=== PATIENT | female | born 1960 | race Caucasian/White ===

== ENCOUNTER 2016-07-16 15:45 | Emergency (ER) | payer MEDICAID ==
[~2016-07-16] VITALS: Ht 165.1 cm; Wt 69.4 kg
[~2016-07-16 15:45] MED LIST: ACCOLATE20 MG PO; ADOXA100 MG PO; ADVAIR DISKUS 21 DSK IH; ALBUTEROL; ALBUTEROL2.5 MG/NEB IN; ASPIRIN EC81 MG PO; AUGMENTIN1 TA2 PO; AZITHROMYCIN250 M1 PO; BACTROBAN2% TP; BENADRYL 50MG C50 MG PO; BENADRYL G12.5 MG/5 PO; BENTYL GENERIC10 MG OR; BIAXIN 500MG T500 MG PO; BIAXIN500 MG PO; CEFDINIR 300MG300 MG PO; COMBIVENT INH14.7 GM IN; COMBIVENT RESPI1 SPR IN; DARVOCET-N 1001 EACH PO; DELTASONE5 MG PO; FLEXERIL10 MG PO; FUROSEMIDE80 M1 PO; FUROSEMIDE80 MG PO; GABAPENTIN300 M1 PO; HUMALOG PEN100 U/ML SC; HUMULIN 70100 UNITS/ SC; HUMULIN N100 UNITS/ SC; HUMULIN R100 UNITS/ SC; HUMULIN10 ML SC; HYDROCODONE BIT PO; HYDROCODONE1 TABLET PO; HYDROCORTI30 GM/TUB1 TP; IBU-8800 MG PO; IBU800 M1 PO; IPRATROPIUM; KEFLEX 500MG.500 MG PO; LANOXIN 0.25M0.25 MG PO; LANTUS INS100 UNITS/ SC; LORTAB 5/3251 TAB PO; LORTAB 5/500 501 TAB PO; MACROBID 100MG100 M1 PO; MEDROL 4MG. DOSE4 MG PO; METFORMIN HCL850 M1 PO; METFORMIN1000 MG PO; MONTELUKAST SOD10 MG PO; MUCINEX DM 30 M1 TE1 PO; NAPROSYN 500MG500 MG PO; NAPROSYN500 M1 PO; NEXIUM40 MG PO; NITROGLYCERIN0.4 MG SL; NORTRIPTYLINE H25 M1 PO; NOVOLIN 70/30 710 ML SC; OMNICEF 300 MG300 MG PO; PAXIL20 MG PO; PEPCID 20MG TAB20 MG PO; PERCOCET 5/3251 EACH PO; PHENERGAN 25MG.25 M1 PO; PREDNISOLO15 MG/5 M1 PO; PREDNISONE 10MG10 MG PO; PREDNISONE 20MG20 MG PO; PREDNISONE 5MG.5 MG PO; PREDNISONE5 MG PO; PREDNISONE50 MG PO; PROMETHAZINE HC25 M1 PO; PROTONIX40 MG PO; PROVENTIL0.09 MG/AC IH; ROBAXIN-750750 MG PO; SKELAXIN 800MG800 MG PO; STERAPRED DS10 MG PO; TESSALON PERLE100 MG PO; TESSALON PERLE200 MG PO; TOUJEO300 U/ML SC; TRAMADOL 50MG T1 PAK PO; TRAMADOL HYDROC50 M1 PO; TRAMADOL50 M1 PO; VALIUM10 MG PO; VIBRAMYCIN 100100 MG PO; VIBRAMYCIN HYC100 MG PO; VICODIN 5/500 T1 TAB PO; ZAFIRLUKAST20 M1 PO; ZANTAC 300300 MG PO; ZITHROMAX Z PA250 MG PO; Zithromax500 MG PO
--- NOTE | 2016-07-16 16:13 | Emergency Room Report ---
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 N Clinical Suspician of Infection? N Mental Status: 1 - Regular (Normal Baseline) Sepsis Risk:Low Sepsis Risk Have you (or family members/close friends) recently traveled outside the [place]? N If Yes, where/when: Have you had exposure to infectious disease within the past month? N TB? Other? 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 Declines pain medications as "I drank beers today". ALLERGIES Coded Allergies: Penicillins (Intermediate, I-RASH 05/23/16) Sulfa (Sulfonamide Antibiotics) (Intermediate, NA-NAUSEA/VOMITING 05/23/16) amoxicillin (Intermediate, I-RASH 05/23/16) azithromycin (Intermediate, I-RASH 05/23/16) doxycycline (Intermediate, I-RASH 05/23/16) levofloxacin (Intermediate, NA-NAUSEA/VOMITING 05/23/16) montelukast (Intermediate, I-RASH 05/23/16) propoxyphene (Intermediate, NA-NAUSEA/VOMITING 05/23/16) trimethoprim (Intermediate, NA-NAUSEA/VOMITING 05/23/16) ibuprofen (Mild, NA-NAUSEA/VOMITING 05/23/16) Quinolones (05/23/16) sulfamethoxazole (05/23/16) Home Medications Active Scripts Diazepam (Valium) 10 MG PO TIDP #90 Ref 2 Prov: 02/03/14 TRAMADOL HCL (Tramadol) 50 MG PO TID #90 TAB Prov: 06/22/15 Reported Medications ALBUTEROL/IPRATROPIUM (Combivent Respimat Inhal [place]) 1 PUFFS IN Q4HP Furosemide 80 MG PO DAILYP PRN NEEDED DIURETIC Digoxin (Lanoxin 0.25MG) 0.25 MG PO DAILY Montelukast Sodium 10 MG PO QHS PAROXETINE (Paroxetine HCl) 30 MG PO DAILY Pantoprazole Sodium (Protonix) 40 MG PO DAILY Insulin Lispro (Humalog INSULIN Pen) 25 UNITS SC AC Prednisone (Prednisone 5MG) 5 MG PO DAILY INSULIN GLARGINE,HUM.REC.ANLOG (Kit Lee) 70 U SC QHS History Medical History General CAD? Yes Angina: No [place]: No Hypertension? No Hyperlipidemia? Yes CHF? No DVT? No PE? No COPD? Yes Asthma? Yes Anemia? No GERD? Yes Gastric ulcers? No GI Bleed? No Hernia? Yes Thyroid Problems? No Hypothyroidism? No CVA? No Seizures? No Diabetes? Yes Insulin Dependent: Yes Insulin Pump: No Home FSBS? Yes Renal Insuffiency? No End Stage Renal Disease? No UTI? Yes Stones? No BPH? No GB Disease: Yes Nephritic Syndrome? No Asplenia? No Hepatitis? No Sickle Cell Disease? No Arthritis? Yes Migraines? No Cataracts? No Glaucoma? No MRSA? No HIV? No TB? No Anxiety? Yes Depression? Yes Cancer? No Additional hx: Chronic Hyponatremia(uncontrolled DM and alcoholism), Alcoholism Immunization Hx DT/Tetanus N Flu Refused Pneumonia Refuses Surgical Hx Previous Surgery?Y TUBAL REMOVAL OF LUNG ABCESS RT.FALLOPIAN TUBE REM. 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 LMP N/A Family History Family Hx Diabetes Yes CAD No Hypertension Yes Hyperlipidemia Yes Cancer Yes TB No Social History Smoking Hx Smoker: Current Every Day Smoker Tobacco: Yes Type Cigarettes Packs/day < 1 Pack Alcohol Alcohol: Yes Review of Systems All Other Systems Reviewed and Negative Musculoskeletal see HPI Physical Exam Vital Signs Vital Signs Date Time Temp Pulse Resp B/P Pulse O2 O2 Flow FiO2 Ox Delivery Rate 07/16 1706 74 16 123/75 97 07/16 1629 76 16 135/74 95 07/16 1546 98.2 79 16 122/63 95 General Appearance normal appearance, WD/WN, no apparent distress Respiratory Status Yes: trachea midline. No: respiratory distress. Cardiovascular no peripheral edema Extremities Ecchymosis just distal to left patella, extending to proximal tibia region, some swelling; no asymmetry, crepitus, deformities, or stepoff. No laxity. Distally, no edema or asymmetry, moves other joints well. Neurologic alert, normal exam, no motor/sensory deficits, oriented x 3 Skin intact, bruising Medical Decision Making LABS/Meds/Orders Pt receiving controlled substance in ED? Yes Barrie was queried for this patient? Yes Reference #: [id number] Risks/benefits of using a controlled substance for treatment were discussed w/pt by me Results/Orders Orders Procedure Date/time Status LOWER LEG-LT 07/16 1551 Active KNEE-3 VIEWS-LT 07/16 1551 Active XRAY/CT/US XRAY/CT/US XRAY knee XR interpretation by reviewed by me Xray Results normal/NAD (L tibial tubercle fx), abnormal Consult MD Physician Consult Consult/PCP d/w Dr. Sandra posterior splint and walker, october f/u this week for recheck. Time Called 1622 Reason Pt. Condition, Orthopedic eval/care Comments Dr. Sandra Departure Departure Time of Disposition 171 Disposition DC Home or Self Care(routine) Clinical Impression Primary Impression: Fracture of tibial shaft, left, closed Qualifiers: Encounter type: initial encounter Fracture morphology: oblique Fracture alignment: displaced Qualified Code: S82.232A - Displaced oblique fracture of shaft of left tibia, initial encounter for closed fracture Condition STABLE Referrals Luis Alberto Fan MD (Family) Patient Instructions DI for Shinbone Fracture Additional Instructions You may follow up with Dr. Fan this week for recheck and for orthopedic referral as you will need a cast per my discussion with our web content specialist orthopedic surgeon, Dr. Sandra, who reviewed the xrays today and made recommendations. Discharge Counseling Counseled pt/family regarding diagnosis, test results, medications/RX, home care, follow up needs Prescriptions Current Visit Scripts HYDROCODONE/ACETAMINOPHEN (Lortab 5-325 MG Tablet) 1 TAB PO Q6HP PRN fracture pain #20 TAB ED Critical Care Critical Care No at 1728
--- NOTE | 2016-07-16 16:13 | Emergency Room Report ---
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 N Clinical Suspician of Infection? N Mental Status: 1 - Regular (Normal Baseline) Sepsis Risk:Low Sepsis Risk Have you (or family members/close friends) recently traveled outside the [place]? N If Yes, where/when: Have you had exposure to infectious disease within the past month? N TB? Other? 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 Declines pain medications as "I drank beers today". ALLERGIES Coded Allergies: Penicillins (Intermediate, I-RASH 05/23/16) Sulfa (Sulfonamide Antibiotics) (Intermediate, NA-NAUSEA/VOMITING 05/23/16) amoxicillin (Intermediate, I-RASH 05/23/16) azithromycin (Intermediate, I-RASH 05/23/16) doxycycline (Intermediate, I-RASH 05/23/16) levofloxacin (Intermediate, NA-NAUSEA/VOMITING 05/23/16) montelukast (Intermediate, I-RASH 05/23/16) propoxyphene (Intermediate, NA-NAUSEA/VOMITING 05/23/16) trimethoprim (Intermediate, NA-NAUSEA/VOMITING 05/23/16) ibuprofen (Mild, NA-NAUSEA/VOMITING 05/23/16) Quinolones (05/23/16) sulfamethoxazole (05/23/16) Home Medications Active Scripts Diazepam (Valium) 10 MG PO TIDP #90 Ref 2 Prov: 02/03/14 TRAMADOL HCL (Tramadol) 50 MG PO TID #90 TAB Prov: 06/22/15 Reported Medications ALBUTEROL/IPRATROPIUM (Combivent Respimat Inhal [place]) 1 PUFFS IN Q4HP Furosemide 80 MG PO DAILYP PRN NEEDED DIURETIC Digoxin (Lanoxin 0.25MG) 0.25 MG PO DAILY Montelukast Sodium 10 MG PO QHS PAROXETINE (Paroxetine HCl) 30 MG PO DAILY Pantoprazole Sodium (Protonix) 40 MG PO DAILY Insulin Lispro (Humalog INSULIN Pen) 25 UNITS SC AC Prednisone (Prednisone 5MG) 5 MG PO DAILY INSULIN GLARGINE,HUM.REC.ANLOG (Kit Lee) 70 U SC QHS History Medical History General CAD? Yes Angina: No [place]: No Hypertension? No Hyperlipidemia? Yes CHF? No DVT? No PE? No COPD? Yes Asthma? Yes Anemia? No GERD? Yes Gastric ulcers? No GI Bleed? No Hernia? Yes Thyroid Problems? No Hypothyroidism? No CVA? No Seizures? No Diabetes? Yes Insulin Dependent: Yes Insulin Pump: No Home FSBS? Yes Renal Insuffiency? No End Stage Renal Disease? No UTI? Yes Stones? No BPH? No GB Disease: Yes Nephritic Syndrome? No Asplenia? No Hepatitis? No Sickle Cell Disease? No Arthritis? Yes Migraines? No Cataracts? No Glaucoma? No MRSA? No HIV? No TB? No Anxiety? Yes Depression? Yes Cancer? No Additional hx: Chronic Hyponatremia(uncontrolled DM and alcoholism), Alcoholism Immunization Hx DT/Tetanus N Flu Refused Pneumonia Refuses Surgical Hx Previous Surgery?Y TUBAL REMOVAL OF LUNG ABCESS RT.FALLOPIAN TUBE REM. 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 N/A Family History Family Hx Diabetes Yes CAD No Hypertension Yes Hyperlipidemia Yes Cancer Yes TB No Social History Smoking Hx Smoker: Current Every Day Smoker Tobacco: Yes Type Cigarettes Packs/day < 1 Pack Alcohol Alcohol: Yes Review of Systems All Other Systems Reviewed and Negative Musculoskeletal see HPI Physical Exam Vital Signs Vital Signs Date Time Temp Pulse Resp B/P Pulse O2 O2 Flow FiO2 Ox Delivery Rate 07/16 1706 74 16 123/75 97 07/16 1629 76 16 135/74 95 07/16 1546 98.2 79 16 122/63 95 General Appearance normal appearance, WD/WN, no apparent distress Respiratory Status Yes: trachea midline. No: respiratory distress. Cardiovascular no peripheral edema Extremities Ecchymosis just distal to left patella, extending to proximal tibia region, some swelling; no asymmetry, crepitus, deformities, or stepoff. No laxity. Distally, no edema or asymmetry, moves other joints well. Neurologic alert, normal exam, no motor/sensory deficits, oriented x 3 Skin intact, bruising Medical Decision Making LABS/Meds/Orders Pt receiving controlled substance in ED? Yes Barrie was queried for this patient? Yes Reference #: [id number] Risks/benefits of using a controlled substance for treatment were discussed w/pt by me Results/Orders Orders Procedure Date/time Status LOWER LEG-LT 07/16 1551 Active KNEE-3 VIEWS-LT 07/16 1551 Active XRAY/CT/US XRAY/CT/US XRAY knee XR interpretation by reviewed by me Xray Results normal/NAD (L tibial tubercle fx), abnormal Consult MD Physician Consult Consult/PCP d/w Dr. Sandra posterior splint and walker, october f/u this week for recheck. Time Called 1622 Reason Pt. Condition, Orthopedic eval/care Comments Dr. Sandra Departure Departure Time of Disposition 171 Disposition DC Home or Self Care(routine) Clinical Impression Primary Impression: Fracture of tibial shaft, left, closed Qualifiers: Encounter type: initial encounter Fracture morphology: oblique Fracture alignment: displaced Qualified Code: S82.232A - Displaced oblique fracture of shaft of left tibia, initial encounter for closed fracture Condition STABLE Referrals Luis Alberto Fan MD (Family) Patient Instructions DI for Shinbone Fracture Additional Instructions You may follow up with Dr. Fan this week for recheck and for orthopedic referral as you will need a cast per my discussion with our manager of production orthopedic surgeon, Dr. Sandra, who reviewed the xrays today and made recommendations. Discharge Counseling Counseled pt/family regarding diagnosis, test results, medications/RX, home care, follow up needs Prescriptions Current Visit Scripts HYDROCODONE/ACETAMINOPHEN (Lortab 5-325 MG Tablet) 1 TAB PO Q6HP PRN fracture pain #20 TAB ED Critical Care Critical Care No at 1727
[2016-07-16] MEDS ORDERED: LORTAB 5/3251 TAB PO (17:20)
[2016-07-16] MEDS ORDERED: WALK1 XX (17:22)
[2016-07-16 17:34] VITALS: BP 123/75
--- NOTE | 2016-07-16 19:30 | RADIOLOGY REPORT PS360 ---
KNEE-3 VIEWS-LT, LOWER LEG-LT ORDERING PHYSICIAN : Judy Martinez MD PATIENT AGE: 56 years GENDER: Female INDICATION: FALL pain left leg LEFT KNEE 3 VIEWS TECHNIQUE: 3 views left leg. COMPARISON: Left lower leg from today FINDINGS The fracture seen passing obliquely at the proximal tibia. This passes from the inferior margin of the tibial tubercle transversing the proximal metaphysis of proximal tibia. Oblique fracture of here extends to the tibial-fibular articulation is nicely seen on today's oblique view. There is mild distraction of this fracture anteriorly but nondisplaced posteriorly. Focal soft tissue swelling overlying tibial tubercle reflects this injury. The fracture does not appear to involve the knee joint. The cortical margins here appear satisfactory. The medial lateral compartment well-maintained. IMPRESSION: Acute Fracture passing obliquely proximal tibia- seen transversing the proximal left tibial metaphysis. . No significant displacement . Only mild distraction anteriorly LEFT LOWER LEG 2 views AP lateral Findings. The fracture of the proximal tibia is better seen on the left knee study. However these images also partially included fracture at the proximal tibia metaphysis as described in the above knee report. Otherwise the mid shaft of tibia and distal tibia appear intact. The fibula is intact throughout. The 2 views of ankle included on this study unremarkable. IMPRESSION. . Fracture transversing proximal tibia. Again noted . Remainder of tibia and fibula intact
== END 2016-07-16 17:34 | disposition home or self-care (01) ==
LOC: ER 15:45
DX: S82.232A Displaced oblique fracture of shaft of left tibia, initial encounter for closed fracture (principal); W19.XXXA Unspecified fall, initial encounter; I25.10 Atherosclerotic heart disease of native coronary artery without angina pectoris; J44.9 Chronic obstructive pulmonary disease, unspecified; K21.9 Gastro-esophageal reflux disease without esophagitis; E11.9 Type 2 diabetes mellitus without complications; Z79.4 Long term (current) use of insulin; Z72.0 Tobacco use; F10.10 Alcohol abuse, uncomplicated

== ENCOUNTER → 2016-08-13 | Outpatient (CLI) | payer MEDICAID ==
[~2016-08-13] MED LIST changes: +WALK1 XX
--- NOTE | 2016-08-14 12:59 | RADIOLOGY REPORT PS360 ---
KNEE-LIMITED 2 VIEWS-LT ORDERING PHYSICIAN : Luan Sandra MD PATIENT AGE: 56 years GENDER: Female INDICATION: FX LT TIBIA TECHNIQUE: 2 view left knee COMPARISON: To 2016 FINDINGS Fiberglas cast in place. There is a healing fracture passing obliquely through the proximal metaphysis of the tibia. It passes through the base the tibial tubercle where there is mild comminution. We do see sclerosis and evidence of early healing along the fracture zone. Stable position of fracture elements. IMPRESSION: Stable position of fracture elements, with early healing along the fracture now evident
== END ==
LOC: RAD 09:13
DX: S82.202A Unspecified fracture of shaft of left tibia, initial encounter for closed fracture (principal)

== ENCOUNTER → 2016-11-07 | Outpatient (CLI) | payer MEDICAID ==
--- NOTE | 2016-11-07 14:25 | RADIOLOGY REPORT PS360 ---
KNEE-LIMITED 2 VIEWS-LT HISTORY: Follow-up fracture LEFT TIBIA FX ORDERING PHYSICIAN: Luan Sandra MD PATIENT AGE: 56 years COMPARISON: 09/28/2016 FINDINGS: There is a healing oblique fracture involving the proximal tibia as previously described. Fracture line is still visible medially, somewhat more apparent which may be due to hyperemia. There is mild varus angulation of the distal fracture fragment. The varus angulation. Somewhat greater on today's exam. The remaining sclerosis at the lateral aspect of the fracture. IMPRESSION: Oblique proximal tibial fracture. Fracture line is still visible medially and somewhat more apparent with some mild varus angulation of the distal fracture fragment slightly increased. Suspect delayed union medially..
== END ==
LOC: RAD 13:24
DX: S82.202D Unspecified fracture of shaft of left tibia, subsequent encounter for closed fracture with routine healing (principal)

== ENCOUNTER 2017-03-17 14:39 | Observation (INO) | payer MEDICAID ==
[~2017-03-17] VITALS: Ht 162.6 cm; Wt 64.1 kg
[2017-03-17 14:47] VITALS: BP 123/76
--- NOTE | 2017-03-17 15:44 | Emergency Room Report ---
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 N Clinical Suspician of Infection? Y Mental Status: 1 - Regular (Normal Baseline) Sepsis Risk:Low Sepsis Risk Have you (or family members/close friends) recently traveled outside the [place]? N If Yes, where/when: Have you had exposure to infectious disease within the past month? TB? Other? Specify: 56 years old white female chronic obstructive pulmonary disease steroid dependent and continues to smoke. She is started developing shortness of breath for the last 2 weeks with nonproductive cough. She ran out of her Combivent inhaler a week ago with worsening of her symptoms and the sputum became productive yellow in color. She is here because she is short of breath and wheezing. She denies having chest pain palpitations nausea vomiting. Source patient, RN notes reviewed Exam Limitations no limitations ALLERGIES Coded Allergies: Penicillins (Intermediate, I-RASH 05/23/16) Sulfa (Sulfonamide Antibiotics) (Intermediate, NA-NAUSEA/VOMITING 05/23/16) amoxicillin (Intermediate, I-RASH 05/23/16) azithromycin (Intermediate, I-RASH 05/23/16) doxycycline (Intermediate, I-RASH 05/23/16) levofloxacin (Intermediate, NA-NAUSEA/VOMITING 05/23/16) propoxyphene (Intermediate, NA-NAUSEA/VOMITING 05/23/16) trimethoprim (Intermediate, NA-NAUSEA/VOMITING 05/23/16) ibuprofen (Mild, NA-NAUSEA/VOMITING 05/23/16) Quinolones (05/23/16) sulfamethoxazole (05/23/16) Home Medications Active Scripts Device (Walker, Standard) 1 UNIT XX UD #1 DEV Prov: 07/16/16 Diazepam (Valium) 10 MG PO TIDP #90 Ref 2 Prov: 02/03/14 TRAMADOL HCL (Tramadol) 50 MG PO TID #90 TAB Prov: 06/22/15 Reported Medications ALBUTEROL/IPRATROPIUM (Combivent Respimat Inhal [place]) 1 PUFFS IN QID Furosemide 80 MG PO DAILYP PRN NEEDED DIURETIC Digoxin (Lanoxin 0.25MG) 0.25 MG PO DAILY Montelukast Sodium 10 MG PO QHS PAROXETINE (Paroxetine HCl) 30 MG PO DAILY Pantoprazole Sodium (Protonix) 40 MG PO DAILY Prednisone (Prednisone 5MG) 5 MG PO DAILY History Medical History General CAD? Yes Angina: No [place]: No Hypertension? No Hyperlipidemia? Yes CHF? No DVT? No PE? No COPD? Yes Asthma? Yes Anemia? No GERD? Yes Gastric ulcers? No GI Bleed? No Hernia? Yes Thyroid Problems? No Hypothyroidism? No CVA? No Seizures? No Diabetes? Yes Insulin Dependent: No Insulin Pump: No Home FSBS? Yes Renal Insuffiency? No End Stage Renal Disease? No UTI? Yes Stones? No BPH? No GB Disease: Yes Nephritic Syndrome? No Asplenia? No Hepatitis? No Sickle Cell Disease? No Arthritis? Yes Migraines? No Cataracts? No Glaucoma? No MRSA? No HIV? No TB? No Anxiety? Yes Depression? Yes Cancer? No Additional hx: Chronic Hyponatremia(uncontrolled DM and alcoholism), Alcoholism Immunization Hx Ped.Immunizations UTD Yes DT/Tetanus Unknown Flu Refused Pneumonia Refuses Surgical Hx Previous Surgery?Y TUBAL REMOVAL OF LUNG ABCESS RT.FALLOPIAN TUBE REM. 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 Respiratory see HPI, cough, orthopnea, wheezing Cardiovascular no symptoms reported Gastrointestinal no symptoms reported Genitourinary no symptoms reported. Musculoskeletal no symptoms reported Skin no symptoms reported Psychiatric/Neurological no symptoms reported Physical Exam Vital Signs Vital Signs Date Time Temp Pulse Resp B/P Pulse O2 O2 Flow FiO2 Ox Delivery Rate 03/17 1635 75 18 104/42 95 03/17 1447 97.8 98 18 123/76 98 - WBC >12,000 or <4,000 or 10% bands? 2 or more SIRS Criteria Met? B/P:123/76 MAP:91 Creatinine >2.0? UA output<0.5ml/kg/hr for 2 hrs? Platelet count >100,000? Lactate >2.0mmol/1? INR >1.2 or PTT > than 60 sec? Evidence of Organ Dysfunction? Provider documented clinical suspician of infection? Y Sepsis Criteria Count: 1 Sepsis Risk: Low Sepsis Risk General Appearance normal appearance, WD/WN Eye Exam - bilateral eye normal exam, bilateral eye PERRL, bilateral eye EOMI Ear, Nose, Throat hearing grossly normal, normal ENT inspection Neck normal inspection, non-tender, supple, full range of motion Respiratory Status Yes: chest symmetrical, non tender chest. Lung Sounds bilateral: decreased breath sounds, rhonchi, wheezing. 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 No Results/Orders Laboratory Tests 03/17/17 1545: Sodium 130 L, Potassium 4.6, Chloride 100, Carbon Dioxide 26, BUN 18, Creatinine 0.8, Estimated Creat Clear 80, Estimated GFR (MDRD) 74, Glucose 106, Calcium 9.0, Total Bilirubin 0.3, AST 13 L, ALT 15, Alkaline Phosphatase 107, Total Protein 7.0, Albumin 3.3 L, Globulin 3.7 H, Albumin/Globulin Ratio 0.9 L, WBC 5.6, RBC 3.72 L, Hgb 12.0 L, Hct 34.2 L, MCV 91.8, RDW 13.2, Plt Count 202, MPV 7.3 L, Gran % 48.3, Gran # 2.7, Lymphocytes % 39.2, Monocytes % 5.4, Eosinophils % 6.4, Basophils % 0.8, Lymphocytes # 2.2, Monocytes # 0.3, Eosinophils # 0.4, Basophils # 0.1, PUBS MCHC 35.0, MCH 32.2 H Current Medication Orders Sig/William Start time Last Medication Dose Route Stop Time Status Admin Albuterol/Ipratropium 0 .STK-MED ONE 03/17 1703 DC INH Ceftriaxone Sodium 0 .STK-MED ONE 03/17 1703 DCr IV Sodium Chloride 50 ML .STK-MED ONE 03/17 1702 DC IV Albuterol/Ipratropium 3 ML ONCE ONE 03/17 1645 DC INH 03/17 1646 Ceftriaxone Sodium 1 GM ONCE ONE 03/17 1645 DCr 03/17 Sodium Chloride 50 ML IV 03/17 1714 1705 Famotidine 0 .STK-MED ONE 03/17 1616 DC IV Methylprednisolone 0 .STK-MED ONE 03/17 1616 DC Sodium Succinate .ROUTE Albuterol/Ipratropium 3 ML ONCE ONE 03/17 1545 DC 03/17 INH 03/17 1546 1541 Albuterol/Ipratropium 3 ML ONCE ONE 03/17 1545 DC 03/17 INH 03/17 1546 1547 Famotidine 20 MG ONCE ONE 03/17 1545 DC 03/17 IV 03/17 1546 1625 Methylprednisolone 125 MG ONCE ONE 03/17 1545 DC 03/17 Sodium Succinate IV 03/17 1546 1624 Sodium Chloride 10 ML PRN PRN 03/17 1545 AC IV 03/18 1538 Sodium Chloride 8 ML ONCE ONE 03/17 1545 DC 03/17 IV 03/17 1546 1658 Albuterol/Ipratropium 0 .STK-MED ONE 03/17 1543 DC INH Orders Procedure Date/time Status RT REQUEST DUONEB 03/17 1644 Active CULTURE, SPUTUM 03/17 1545 Active RT REQUEST DUONEB 03/17 1544 Active CULTURE, BLOOD 03/17 1544 Active LACTIC ACID 03/17 1544 Active CBC WITH AUTO DIFF 03/17 1544 Complete CHEM 12 PROFILE 03/17 1544 Complete RT REQUEST DUONEB 03/17 1538 Active CHEST(2 VIEWS-NOT PORTABLE) 03/17 1538 Active IV SALINE LOCK 03/17 1538 Active XRAY/CT/US XRAY/CT/US XRAY chest XR interpretation by reviewed by me Xray Results no infiltrates Departure Departure Time of Disposition 1542 Disposition Still a Patient Clinical Impression Primary Impression: COPD exacerbation Secondary Impressions: Non compliance with medical treatment, Tobacco use Condition STABLE Referrals Meng SCHUMACHER,Luis Alberto (Family) Additional Instructions I discussed with dr seals who agreed to admit for more steroids and duonebs. Discharge Counseling Counseled pt/family regarding diagnosis, test results, medications/RX, home care, follow up needs ED Critical Care Critical Care No If Critical Care minutes are documented, the time involved in the performance of seperately reportable procedures was not counted toward critical care time documented. I directly delivered medical care to this critically ill and/or injured patient. Timely evaluation and treatment was necessary to address the significant organ system(s) dysfunction present in this patient. at 2469
[2017-03-17 15:51] LABS: LYMPH # 2.2 K/mm3 (0.7-4.5); LYMPH % 39.2 % (10-50.0)
[2017-03-17 18:11] VITALS: BP 148/74
[2017-03-17] MEDS ORDERED: SINGULAIR 10 MG10 MG PO (18:27)
[2017-03-17 19:20] VITALS: BP 148/74
--- NOTE | 2017-03-17 21:28 | RADIOLOGY REPORT PS360 ---
CHEST(2 VIEWS-NOT PORTABLE) HISTORY: SOA ORDERING PHYSICIAN: Anival Ruvalcaba MD PATIENT AGE: 56 years COMPARISON: 12/20/2016 FINDINGS: The cardiomediastinal silhouette and pulmonary vascularity are within normal limits. There is diffuse coarsening of the bronchovascular markings as before consistent with pulmonary interstitial fibrotic changes. No lobar consolidation or collapse evident with no significant change. There is mild wedging involving mid thoracic vertebral body at T7 unchanged. IMPRESSION: 1. No acute finding. 2. Diffuse chronic interstitial changes/pulmonary fibrosis.
--- NOTE | 2017-03-17 21:34 | HISTORY AND PHYSICAL REPORT ---
Demographics: Admit date: 03/17/17 Chief complaint: Wheezing PRIMARY DIAGNOSIS: COPD Allergies: Coded Allergies: Penicillins (Intermediate, I-RASH 05/23/16) Sulfa (Sulfonamide Antibiotics) (Intermediate, NA-NAUSEA/VOMITING 05/23/16) amoxicillin (Intermediate, I-RASH 05/23/16) azithromycin (Intermediate, I-RASH 05/23/16) doxycycline (Intermediate, I-RASH 05/23/16) levofloxacin (Intermediate, NA-NAUSEA/VOMITING 05/23/16) propoxyphene (Intermediate, NA-NAUSEA/VOMITING 05/23/16) trimethoprim (Intermediate, NA-NAUSEA/VOMITING 05/23/16) ibuprofen (Mild, NA-NAUSEA/VOMITING 05/23/16) Quinolones (05/23/16) sulfamethoxazole (05/23/16) History of present illness: History of present illness: 56-year-old female with chronic obstructive pulmonary disease presented to the emergency department with a week long history of shortness of breath and increasing wheezing and dyspnea. She denies fevers or chills. Cough is nonproductive. She does not use oxygen at home. Patient was tachypneic on presentation after treatment with aerosols and steroids had shown only minimal improvement and decision was made to admit for further aerosols and steroids Past medical history: Family HX Family Hx Insignificant No Diabetes Yes CAD No Hypertension Yes Hyperlipidemia Yes Cancer Yes TB No Immunization HX Ped.Immunizations UTD Yes DT/Tetanus Unknown Flu Refused Pneumonia Received In Past TB Test in last year No General CAD? Yes Angina: No LA: No Hypertension? No Hyperlipidemia? Yes CHF? No DVT? No PE? No COPD? Yes Asthma? Yes Anemia? No GERD? Yes Gastric ulcers? No GI Bleed? No Hernia? Yes Thyroid Problems? No Hypothyroidism? No CVA? No Seizures? No Diabetes? Yes Insulin Dependent: No Insulin Pump: No Home FSBS? Yes Renal Insuffiency? No UTI? Yes Stones? No BPH? No GB Disease: Yes Nephritic Syndrome? No Asplenia? No Hepatitis? No Sickle Cell Disease? No Arthritis? Yes Migraines? No Cataracts? No Glaucoma? No MRSA? No HIV? No TB? No Anxiety? Yes Depression? Yes Cancer? No Additional hx: Chronic Hyponatremia(uncontrolled DM and alcoholism), Alcoholism Past Surgical HX Previous Surgery?Y TUBAL REMOVAL OF LUNG ABCESS RT.FALLOPIAN TUBE REM. SURG FOR PLEURISY POLYPS REMOVED FROM COLON EGD COLONOSCOPY Current home meds: Active Scripts Device (Walker, Standard) 1 UNIT XX UD #1 DEV Prov: 07/16/16 Diazepam (Valium) 10 MG PO TIDP #90 Ref 2 Prov: 02/03/14 TRAMADOL HCL (Tramadol) 50 MG PO TID #90 TAB Prov: 06/22/15 Reported Medications ALBUTEROL/IPRATROPIUM (Combivent Respimat Inhal [place]) 1 PUFFS IN QID Furosemide 80 MG PO DAILYP PRN NEEDED DIURETIC Digoxin (Lanoxin 0.25MG) 0.25 MG PO DAILY Montelukast Sodium 10 MG PO QHS Montelukast Sodium (Singulair 10MG) 10 MG PO DAILY PAROXETINE (Paroxetine HCl) 30 MG PO DAILY Pantoprazole Sodium (Protonix) 40 MG PO DAILY Prednisone (Prednisone 5MG) 5 MG PO DAILY Social Hx: Smoking HX Tobacco Yes Type Cigarettes Packs/day < 1 PACK Are you/the child exposed to second-hand smoke: Yes Alcohol Alcohol: Yes How much do you drink Less Than One Drink A Day For how long Longer Than 5 Years When was your last drink 24-48 Hours Ago Hx of Drug Use Drug Use? No Patient's support system is fair Review of systems: Constitutional No: chills, fever. Respiratory see HPI. Cardiovascular no symptoms reported Gastrointestinal/Abdominal no symptoms reported Genitourinary no symptoms reported. Musculoskeletal no symptoms reported. Neurological Yes: no symptoms reported. Exam: Lab data for last 24 hours: Laboratory Tests 03/17/17 1824: Lactic Acid 1.1 03/17/17 1545: Sodium 130 L, Potassium 4.6, Chloride 100, Carbon Dioxide 26, BUN 18, Creatinine 0.8, Estimated Creat Clear 80, Estimated GFR (MDRD) 74, Glucose 106, Calcium 9.0, Total Bilirubin 0.3, AST 13 L, ALT 15, Alkaline Phosphatase 107, Total Protein 7.0, Albumin 3.3 L, Globulin 3.7 H, Albumin/Globulin Ratio 0.9 L, WBC 5.6, RBC 3.72 L, Hgb 12.0 L, Hct 34.2 L, MCV 91.8, RDW 13.2, Plt Count 202, MPV 7.3 L, Gran % 48.3, Gran # 2.7, Lymphocytes % 39.2, Monocytes % 5.4, Eosinophils % 6.4, Basophils % 0.8, Lymphocytes # 2.2, Monocytes # 0.3, Eosinophils # 0.4, Basophils # 0.1, PUBS MCHC 35.0, MCH 32.2 H Microbiology 03/17 1825 SPUTUM: Sputum Culture - RES 03/17 1825 SPUTUM: Gram Stain - RES 03/17 1824 BLOOD: Anaerobic Blood Culture - RECD 03/17 1824 BLOOD: Aerobic Blood Culture - RECD 03/17 1824 BLOOD: Anaerobic Blood Culture - RECD 03/17 1824 BLOOD: Aerobic Blood Culture - RECD Admission vital signs: 1ST Vital Signs Result Date Time Pulse Ox 98 03/17 1447 B/P 123/76 03/17 1447 Temp 97.8 03/17 1447 Pulse 98 03/17 1447 Resp 18 03/17 1447 O2 Delivery ROOM AIR 03/17 1811 Exam General appearance: normal appearance, alert, awake Eyes: normal exam, anicteric ENT: normal exam, mucous membranes moist Neck: normal inspection, non-tender, no carotid bruit, no JVD Cardiovascular: normal exam Respiratory: no respiratory distress, wheezing (throughout) ABD: soft, no tenderness Plan: Problem List 1. Chronic obstructive pulmonary disease with (acute) exacerbation Plan: Patient has been admitted for additional IV steroids and aerosols.
[2017-03-17 21:47] VITALS: BP 108/72
[2017-03-18 03:34] VITALS: BP 113/55
--- NOTE | 2017-03-18 07:23 | ACUTE CARE PROGRESS NOTE (QUA) ---
Progress Notes Subjective Date 03/18/17 Time 0722 Note Patient reports feeling better. She continues to cough. Lowest documented room air sat is 90 percent. Vital signs reviewed. Lungs have good air entry with expiratory rhonchi but improved since yesterday evening. Heart has a regular rate and rhythm. Patient will be discharged home this afternoon for her chronic obstructive pulmonary disease exacerbation. She will follow-up in the office with me on Saturday, March 22 at 3 PM Objective Findings Last VS-Temp:97.6 B/P:113/55 Pulse:86 Resp:18 SaO2:92 ROOM AIR Last weight lbs:141 oz:4 K.071 Method:Bed Scales Assessment/Plan Problem List 1. Chronic obstructive pulmonary disease with (acute) exacerbation Patient condition Improving Plan: continue current care This inpt stay is expected to cross 2 MNs from start of care No at 0723
[2017-03-18 07:24] VITALS: BP 117/62
--- NOTE | 2017-03-18 07:25 | Discharge Summary ---
Demographics Admit date: 03/17/17 Discharge date: 03/18/17 Discharge diagnoses Problem List 1. Chronic obstructive pulmonary disease with (acute) exacerbation History of present illness History of present illness 56-year-old female with chronic obstructive pulmonary disease presented to the emergency department with a week long history of shortness of breath and increasing wheezing and dyspnea. She denies fevers or chills. Cough is nonproductive. She does not use oxygen at home. Patient was tachypneic on presentation after treatment with aerosols and steroids had shown only minimal improvement and decision was made to admit for further aerosols and steroids. Patient was admitted on the evening of the . She was not hypoxic. Chest x- ray did not reveal any infiltrate. White count was normal. She responded well to steroids and aerosols. By the patient was showing improvement in air entry. That she was stable on room air she was discharged to home. She will continue steroids. She will follow-up with me on March 22 at 3 PM Medications Medications: Discharge meds are as noted. Follow up Follow up in office in: March 22 @3pm with: Luis Alberto Fan MD
[2017-03-18] MEDS ORDERED: MEDROL DOSEPAK4 MG PO (07:26)
--- NOTE | 2017-03-18 07:27 | PHARMACY CLINIC NOTE ---
Patient Demographics Patient Demographics Admission date: 03/17/17 Date: 03/18/17 Time: 07 Allergies Coded Allergies: Penicillins (Intermediate, I-RASH 05/23/16) Sulfa (Sulfonamide Antibiotics) (Intermediate, NA-NAUSEA/VOMITING 05/23/16) amoxicillin (Intermediate, I-RASH 05/23/16) azithromycin (Intermediate, I-RASH 05/23/16) doxycycline (Intermediate, I-RASH 05/23/16) levofloxacin (Intermediate, NA-NAUSEA/VOMITING 05/23/16) propoxyphene (Intermediate, NA-NAUSEA/VOMITING 05/23/16) trimethoprim (Intermediate, NA-NAUSEA/VOMITING 05/23/16) ibuprofen (Mild, NA-NAUSEA/VOMITING 05/23/16) Quinolones (05/23/16) sulfamethoxazole (05/23/16) HEIGHT- FT: 5 IN: 4.00 K.071 VTE General Information Labs: Laboratory Tests 03/17 1545 Hematology Hgb (12.2 - 16.2 g/dL) 12.0 L Hct (37.0 - 47.0 %) 34.2 L Plt Count (142 - 424 K/mm3) 202 Disclaimer The following section includes nursing documentation that has been pulled in for pharmacy review. Patient's VTE score: 2 Patient's VTE Risk: VERY LOW RISK Clinical trial participant? No VTE prophylaxis [id number] VTE prophylaxis ordered? Yes Type of prophylaxis/treatment: Lovenox at 0701
[2017-03-18 09:29] VITALS: BP 117/62
[2017-03-18 09:32] VITALS: BP 117/62
[2017-04-01] MEDS ORDERED: LIDOCAINE 2% V100 M2 PO (12:21)
== END 2017-03-18 09:55 | disposition home or self-care (01) ==
LOC: ER 14:39 → 2ND 17:44 → ER 17:44 → 2ND 18:42
PROVIDERS: Emergency Medicine
DX: E87.1 Hypo-osmolality and hyponatremia (principal); E11.9 Type 2 diabetes mellitus without complications; J44.9 Chronic obstructive pulmonary disease, unspecified
CPT/HCPCS: G0378